=== PATIENT | female | born 1990 | race American Indian/Alaskan Native ===

== ENCOUNTER 2017-10-09 13:19 | Emergency (ER) | payer MEDICAID, OTHER ==
[2013-10-02 01:22] VITALS: BMI 23.4
--- NOTE | 2017-10-09 13:59 | OBDCSUM ---
Datetime: 10/09/2017 13:58 Discharged to, Provider: Home Follow up at, Provider: 1 day Follow up in weeks, Provider: dr dean Discharge Comment, Provider: dc home labor g po hy f/u dr dean in 1 day Discharge Diagnosis Prov Other: 40weerk nst false lab
--- NOTE | 2017-10-09 14:00 | OBHP ---
Datetime: 10/09/2017 13:52 IP Adm Impression: Postterm, intrauterine Admit Comment, IP Provider: at 40weeks came with c/o mucus plug last, and irrg ctxs,no vb,+gfm obhx 2 x pmh de med pnv all nkda psh de soch d sse neg nitrazine, neg pooling ve 1-2/60/-2 a/p at 40week in early labor dc home labor g po hy f/u dr dean in 1 day Pelvic Type - PN: Adequate Extremities - PN: Normal Abdomen - PN: Normal Back - PN: Normal Breast - PN: Normal Lungs - PN: Normal Heart - PN: Normal Thyroid - PN: Normal Neurologic - PN: Normal HEENT - PN: Normal General - PN: Normal FHR - Baseline A Provider: 130 Contraction Comments Provider: irrg IP Hx Assessment: The History has been Reviewed and is Current EGA AdmitDate IP: 40.1 Vital Signs Provider: Reviewed; Within Normal Limits IP Chief Complaint: Uterine contractions NICHD Variability Prov Fetus A: Moderate 6-25bpm NICHD Accel Fetus A IP Provider: [id number] FHR Category Provider Fetus A: Category I Dilatation, Provider: 2 Effacement, Provider: 60 Station, Provider: -2 Genitourinary Exam: Normal DTRs - PN: Normal
[2017-10-09 18:40] VITALS: BP 120/72; PULSE 93
== END 2017-10-09 14:39 | disposition home or self-care (01) ==
LOC: C.EROB 13:19
DX: O47.1 False labor at or after 37 completed weeks of gestation (principal); Z3A.40 40 weeks gestation of pregnancy